=== PATIENT | male | born 1970 | race Caucasian/White ===

== ENCOUNTER 2017-01-14 22:20 | Emergency (ER) | payer OTHER ==
[~2017-01-14] VITALS: Ht 177.8 cm; Wt 112.9 kg
[~2017-01-14 22:20] MED LIST: ADDERALL20 MG PO; ASPIR 8181 M1 PO; BP MEDICATION; CATAPRES0.1 MG PO; CELEBREX100 MG PO; FLEXERIL10 MG PO; HYDROCHLOROTHIA25 MG PO; LEXAPRO20 MG PO; LIPITOR40 MG PO; LISINOPRIL10 MG PO; MOBIC15 MG PO; NAPROSYN500 MG PO; NEURONTIN100 MG PO; PERIDEX1 ML MM; PRILOSEC20 MG PO; ULTRAM50 MG PO; ZOLOFT100 MG PO
[2017-01-14 23:46] VITALS: BP 143/112
== END 2017-01-14 23:46 | disposition home or self-care (01) ==
LOC: EXP 22:20 → EME 22:20 → EXP 23:46
DX: T81.33XA Disruption of traumatic injury wound repair, initial encounter (principal); Z88.0 Allergy status to penicillin
CPT/HCPCS: 99281; 99283